=== PATIENT | male | born 1990 | race Caucasian/White ===

== ENCOUNTER 2020-02-27 19:54 | Emergency (ER) | payer SELFPAY ==
[2020-02-27 19:57] VITALS: BP 134/94; PULSE 96; RESP 20; TEMP 37.1; O2SAT 98; BMI 20.5
--- NOTE | 2020-02-27 21:13 | ED.SKABFB ---
HPI - Skin/Abscess/Foreign Bdy General Chief complaint: Skin/Abscess/Foreign Body Stated complaint: rash on hand and foot Time Seen by Provider: 02/27/20 20:56 Source: patient Mode of arrival: Ambulatory Limitations: no limitations History of Present Illness HPI narrative: Patient is a 29-year-old male here for 2 separate reasons. Patient states that he would like tested for sexually transmitted disease. He states that he has had sexual intercourse recently with a female who called him and told him that she tested positive for chlamydia. He denies any dysuria or any other urinary tract/STI like infection symptoms. He states this was unprotected intercourse. He is also here for a separate unrelated issue. He states that for the past several weeks/months he has had a rash on his left hand. He states that it started as a rash on his foot. He is visiting this area. Prior to arrival in this area he was seen multiple times whether providers. He states he was started on a antifungal cream because they told him that it was ring warm. He states that he only use this cream for couple days and because it was too greasy and was not working he stopped using it. He went back to see the provider at the urgent care who then started him on antibiotics. He states that he was told that it was cellulitis. He states the antibiotic was doxycycline and he is unsure exactly how long he took a he thinks it was for something in the range of 10 days. He states that he thought that with the antibiotics his symptoms did improve somewhat however it has since returned. He also states that when he was started on antibiotics he was also given a couple days of steroids for this rash. He describes the rash now on his left hand. He states that it is itching. Related Data Previous Rx's Medication Instructions Recorded clotrimazole 1 applic TOP BID 14 Days #14 gram 02/27/20 Allergies Allergy/AdvReac Type Severity Reaction Status Date / Time No Known Drug Allergies Allergy Verified 02/27/20 20:05 Review of Systems Constitutional Constitutional: Denies fever(s) and Denies headache(s) ENT Ears, Nose, Mouth, and Throat: Denies headache(s) Cardiovascular Cardiovascular: Denies chest pain and Denies dyspnea Respiratory Respiratory: Denies dyspnea Gastrointestinal Gastrointestinal: Denies abdominal pain Genitourinary Genitourinary: Denies hematuria, Denies difficulty urinating, Denies dysuria, Denies genital lesions, Denies genital pain, Denies dysuria, Denies penile discharge and Denies testicular pain Genitourinary: Denies hematuria, Denies dysuria, Denies genital lesions and Denies dysuria Musculoskeletal Musculoskeletal: Denies arthralgias and Denies myalgias Integumentary/Breasts Skin/Breast: Reports pruritus, Reports rash, Denies skin ulcer and Denies sores Neurologic Neurologic: Denies behavioral changes and Denies headache(s) Psychiatric Psychiatric: Denies behavioral changes Hematologic/Lymphatic Hematologic/Lymphatic: Denies easy bleeding and Denies easy bruising Allergic/Immunologic Allergic/Immunologic: Denies urticaria Patient History Medical History Healthy adult (Acute) Social History Smoking Status: Former smoker Smoking Status: Former smoker alcohol intake frequency: 0-2 drinks per day Substance Use Type: does not use Exam Initial Vital Signs Initial Vital Signs: Vital Signs Temperature 98.8 F 02/27/20 19:57 Pulse Rate 96 H 02/27/20 19:57 Respiratory Rate 20 02/27/20 19:57 Blood Pressure 134/94 H 02/27/20 19:57 Pulse Oximetry 98 02/27/20 19:57 Const General: cooperative, comfortable and well developed HENHI Head: normal to inspection and normocephalic Resp Effort & Inspection: normal respiratory effort Skin Other: Patient has 1 spot approximately 1-2 cm of a round rash on the inside aspect of his left ankle. He is a 2nd area that looks very similar in the inside of his right ankle that is 3-4 cm. His left hand has 2 spots on the palm that are red. Do appear circular in nature. There are no vesicles. No pustules. No scaling of the skin. Extrem General: normal to inspection and capillary refill normal Psych Appearance: grossly normal and well kempt Course Orders Ordered: ED Orders 02/27/20 20:42 Chlamydia Gonorrhea PCR -URINE Stat Discontinued Medications Azithromycin (Zithromax) 1,000 mg PO NOW ONE Stop: 02/27/20 21:16 Last Admin: 02/27/20 22:17 Dose: 1,000 mg Documented by: RMARTIN Ceftriaxone Sodium (Rocephin) 250 mg IM NOW ONE Stop: 02/27/20 21:16 Last Admin: 02/27/20 22:17 Dose: 250 mg Documented by: JODEE Ibuprofen (Advil) 800 mg PO NOW ONE Stop: 02/27/20 21:25 Last Admin: 02/27/20 21:28 Dose: 800 mg Documented by: JODEE Vital Signs Vital signs: Vital Signs - 8 hr 02/27/20 19:57 02/27/20 22:26 Temperature 98.8 F Pulse Rate 96 H 68 Respiratory Rate 20 16 Blood Pressure 134/94 H 151/90 H Pulse Oximetry 98 99 MDM - Skin/Abscess/Foreign Bdy Lab Data Attestation: I reviewed the patient's lab results. Labs: Lab Results 02/27/20 Range/Units 20:42 Ur Chlamydia DNA (PCR) Not detected N gonorrhoeae DNA (PCR) Not detected MDM Narrative Medical decision making narrative: Patient's rash that he presents with today was prior to his exposure to the sexually transmitted disease. The has been treated with an antifungal cream but did not take it for the like the time needed for to potentially cause any improvement. He states that he stopped because it was due to ?greasy ?unsure whether not the antibiotics that he had took helped the rash or the steroids since he was both started on these medicines at the same time. Considered etiology such as syphilis or disseminated gonorrhea however patient history and physical and the appearance of the rash are not consistent with these diagnoses plus the fact that started prior to his exposure. A urine GC and chlamydia was sent however after discussing with the patient the decision is made to go ahead and treat him for both gonorrhea and chlamydia despite any results of this test given the fact that he had unprotected intercourse stress recently with an individual who has a known positive test. His rash is most consistent with a tinea infection. Other discussion with him regarding this. Will place him back on the cream. Informed him that the fact that he only took it for couple days does not mean that it will not eventually work. Feel we can hold on further workup for now. Patient was given return precautions and follow-up instructions. He expressed understanding agreement. Discharge Plan Departure Patient Disposition: Home Clinical Impression: Exposure to STD, Tinea corporis Discharge Date/Time: 02/27/20 22:28 Instructions: How to Detect and Treat STDs, DI for Ringworm Activity Restrictions/Additional Instructions: Take the antibiotics as directed. We treated you today for gonorrhea and chlamydia secondary to your reported exposure to a known positive individual. Recommend you abstain from sexual intercourse for the next 7-10 days. Contact your primary provider for follow-up. Prescriptions: New clotrimazole 1 % cream 1 applic TOP BID 14 Days Qty: 14 RF: 0
[2020-02-27] MEDS: IBUPROFEN 400 MG TABLET 800 MG PO (21:28)
[2020-02-27] MEDS: AZITHROMYCIN 250 MG TABLET 1000 MG PO (22:17)
[2020-02-27] MEDS: cefTRIAXone 1,000 MG VIAL 250 MG IM (22:17)
[2020-02-27 22:26] VITALS: BP 151/90; PULSE 68; RESP 16; O2SAT 99
[2020-02-27 22:32] LABS: Urine N gonorrhoeae NOT DETECTED
[2020-02-27 22:38] LABS: Urine Chlamydia NOT DETECTED
== END 2020-02-27 22:28 | disposition home or self-care (01) ==
PROVIDERS: Emergency Provider Emergency Medicine
DX: Z20.2 Contact with and (suspected) exposure to infections with a predominantly sexual mode of transmission (principal); B35.4 Tinea corporis
CPT/HCPCS: 87491; 87591; 96372; 99283; J0696